=== PATIENT | female | born 1980 | race Caucasian/White ===

== ENCOUNTER 2016-11-07 09:19 | Outpatient (CLI) | payer OTHER ==
[2016-11-07 13:35] LABS: BASOPHILS # (AUTO) 0.1 10^3/uL (0.0-0.1); BASOPHILS % (AUTO) 0.8 %; EOSINOPHILS # (AUTO) 0.3 10^3/uL (0.0-0.7); EOSINOPHILS % (AUTO) 3.2 %; HCT - HEMATOCRIT 43.3 % (37.0-47.0); HGB - HEMOGLOBIN 14.4 g/dL (12.0-16.0); LYMPHOCYTES # (AUTO) 2.2 10^3/uL (1.5-3.5); LYMPHOCYTES % (AUTO) 25.8 %; MEAN CORPUSCULAR HEMOGLOBIN 29.9 pg (27.0-31.0); MEAN CORPUSCULAR HGB CONC 33.3 g/dL (32.0-36.0); MEAN CORPUSCULAR VOLUME 89.6 fL (81.0-99.0); MEAN PLATELET VOLUME 9.9 fL (7.9-10.8); MONOCYTES # (AUTO) 0.7 10^3/uL (0.0-1.0); MONOCYTES % (AUTO) 8.3 %; NEUTROPHILS # (AUTO) 5.3 10^3/uL (1.5-6.6); NEUTROPHILS % (AUTO) 61.9 %; RED BLOOD COUNT 4.84 10^6/uL (4.20-5.40); RED CELL DISTRIBUTION WIDTH 13.2 % (12.0-15.0); UNCORRECTED WHITE BLOOD COUNT 8.6 x10^3/uL; WHITE BLOOD COUNT 8.6 x10^3/uL (4.8-10.8)
[2016-11-07 13:36] LABS: ALBUMIN/GLOBULIN RATIO 1.2 (1.0-2.2); BILIRUBIN,TOTAL 0.5 mg/dL (0.2-1.0); BUN - BLOOD UREA NITROGEN 11 mg/dL (6-20); CALCIUM 8.6 mg/dL (8.5-10.3); CARBON DIOXIDE - CO2 23 mmol/L (21-32); CHLORIDE 107 mmol/L (101-111); CHOL/HDL RATIO 3.8 (<4.4); CHOLESTEROL 187 mg/dL; CREATININE 0.8 mg/dL (0.4-1.0); GFR - MDRD 82 (>89); GLUCOSE 91 mg/dL (70-100); HDL CHOLESTEROL 49 mg/dL; LDL/HDL RATIO 2.5 (<4.4); POTASSIUM 3.9 mmol/L (3.5-5.0); SODIUM 138 mmol/L (135-145); TOTAL PROTEIN 6.5 g/dL (6.7-8.2); TRIGLYCERIDES 76 mg/dL; VLDL CHOLESTEROL 15 mg/dL
[2016-11-07 13:44] LABS: HEMOGLOBIN A1C 0.53 g/dL
== END 2016-11-07 09:20 | disposition home or self-care (01) ==
LOC: LAB.WCP 09:19
PROVIDERS: ATTEND Family Medicine
DX: Z00.00 Encounter for general adult medical examination without abnormal findings (principal)
CPT/HCPCS: 36415; 80053; 80061; 83036; 84443; 85025

== ENCOUNTER 2016-12-16 08:39 | Outpatient (CLI) | payer OTHER ==
--- NOTE | 2016-12-16 23:48 | CT Report ---
EXAM: CT HEAD EXAM DATE: 12/16/2016 09:10 AM. CLINICAL HISTORY: SINUSITIS, ACUTE. COMPARISON: None. TECHNIQUE: Multiaxial CT images were obtained from the foramen magnum to the vertex. IV contrast: Non e. Reformats: Coronal. In accordance with CT protocol optimization, one or more of the following dose reduction techniques w ere utilized for this exam: automated exposure control, adjustment of mA and/or KV based on patient s ize, or use of iterative reconstructive technique. FINDINGS: Parenchyma: No intraparenchymal hemorrhage. No evidence of mass, midline shift, or CT findings of inf arction. Edwards-white differentiation is distinct. Extraaxial Spaces: Normal for age. No subdural or epidural collections identified. Ventricles: Normal in size and position. Sinuses: Imaged paranasal sinuses, orbits, and mastoids show no significant abnormality. Bones: No evidence of fracture or calvarial defect. Other: None. IMPRESSION: Normal head CT. [facility] Referring Provider Line: [phone] SITE ID: [id number]
== END 2016-12-16 08:40 | disposition home or self-care (01) ==
LOC: DI 08:39
PROVIDERS: ATTEND Family Medicine
DX: J01.90 Acute sinusitis, unspecified (principal)
CPT/HCPCS: 70450

== ENCOUNTER 2017-11-29 07:10 | Outpatient (CLI) | payer BC, OTHER ==
[2017-11-29 12:59] LABS: BASOPHILS # (AUTO) 0.1 10^3/uL (0.0-0.1); BASOPHILS % (AUTO) 0.8 %; EOSINOPHILS # (AUTO) 0.2 10^3/uL (0.0-0.7); EOSINOPHILS % (AUTO) 1.7 %; HGB - HEMOGLOBIN 14.2 g/dL (12.0-16.0); LYMPHOCYTES # (AUTO) 2.5 10^3/uL (1.5-3.5); LYMPHOCYTES % (AUTO) 25.5 %; MEAN CORPUSCULAR HEMOGLOBIN 30.2 pg (27.0-31.0); MEAN CORPUSCULAR HGB CONC 33.4 g/dL (32.0-36.0); MEAN CORPUSCULAR VOLUME 90.6 fL (81.0-99.0); MEAN PLATELET VOLUME 9.1 fL (7.9-10.8); MONOCYTES # (AUTO) 0.7 10^3/uL (0.0-1.0); MONOCYTES % (AUTO) 7.3 %; NEUTROPHILS # (AUTO) 6.3 10^3/uL (1.5-6.6); NEUTROPHILS % (AUTO) 64.7 %; PLT - PLATELET COUNT 202 10^3/uL (130-450); RED BLOOD COUNT 4.69 10^6/uL (4.20-5.40); RED CELL DISTRIBUTION WIDTH 13.3 % (12.0-15.0); WHITE BLOOD COUNT 9.7 x10^3/uL (4.8-10.8)
[2017-11-29 13:10] LABS: ALBUMIN 3.3 g/dL (3.2-5.5); ALBUMIN/GLOBULIN RATIO 0.9 (1.0-2.2); ALKALINE PHOSPHATASE 70 IU/L (42-121); ALT ALANINE AMINOTRANSFERASE 33 IU/L (10-60); AST ASPARTATE AMINOTRANSFERASE 27 IU/L (10-42); BILIRUBIN,TOTAL 0.5 mg/dL (0.2-1.0); BUN - BLOOD UREA NITROGEN 10 mg/dL (6-20); CALCIUM 8.5 mg/dL (8.5-10.3); CARBON DIOXIDE - CO2 25 mmol/L (21-32); CHLORIDE 104 mmol/L (101-111); CHOL/HDL RATIO 3.1 (<4.4); CHOLESTEROL 176 mg/dL; CREATININE 0.9 mg/dL (0.4-1.0); GFR - MDRD 71 (>89); GLUCOSE 83 mg/dL (70-100); HDL CHOLESTEROL 56 mg/dL; LDL CHOLESTEROL,CALCULATED 97 mg/dL; LDL/HDL RATIO 1.7 (<4.4); SODIUM 136 mmol/L (135-145); TOTAL PROTEIN 6.9 g/dL (6.7-8.2); VLDL CHOLESTEROL 23 mg/dL
[2017-11-29 13:23] LABS: HB2 TOTAL 15.5 g/dL; HEMOGLOBIN A1C 0.5 g/dL; HEMOGLOBIN A1C % 5.1 % (4.6-6.2)
== END 2017-11-29 07:11 ==
LOC: LAB.WCP 07:10
PROVIDERS: ATTEND Family Medicine
DX: Z00.00 Encounter for general adult medical examination without abnormal findings (principal); F41.8 Other specified anxiety disorders
CPT/HCPCS: 36415; 80053; 80061; 82306; 82607; 83036; 83721; 84443; 85025

== ENCOUNTER 2017-12-04 08:00 | Outpatient (CLI) | payer BC ==
[2017-12-04 19:39] LABS: THYROID STIMULATING HORMONE 4.45 uIU/mL (0.34-5.60)
[2017-12-04 19:41] LABS: FREE T4 (FREE THYROXINE) 0.72 ng/dL (0.58-1.64)
== END 2017-12-04 08:01 | disposition home or self-care (01) ==
LOC: LAB.WCP 08:00
PROVIDERS: ATTEND Physician Assistant
DX: R94.6 Abnormal results of thyroid function studies (principal)
CPT/HCPCS: 36415; 84439; 84443; 84481

== ENCOUNTER 2018-01-15 15:30 | Outpatient (CLI) | payer BC | END 2018-01-15 15:31 | disposition home or self-care (01) | LOC: SC 15:30 | PROVIDERS: ATTEND Internal Medicine Pulmonary Disease | DX: G47.30 Sleep apnea, unspecified (principal); G47.10 Hypersomnia, unspecified; R06.83 Snoring; E66.01 Morbid (severe) obesity due to excess calories; Z68.41 Body mass index [BMI] 40.0-44.9, adult | CPT/HCPCS: 99203; 99212 ==

== ENCOUNTER 2018-02-06 13:33 | Outpatient (CLI) | payer BC | END 2018-02-06 13:34 | disposition home or self-care (01) | LOC: SC 13:33 | PROVIDERS: ATTEND Nurse Practitioner Family | DX: G47.33 Obstructive sleep apnea (adult) (pediatric) (principal) | CPT/HCPCS: 99212; 99215 ==

== ENCOUNTER 2018-03-19 18:07 | Emergency (ER) | payer BC ==
[2018-03-19 18:13] VITALS: BP 147/102
[2018-03-19] MEDS ORDERED: HYDROcod/ACETAM 5/325 MG TABLET PO STA (18:23)
[2018-03-19] MEDS ORDERED: BACITRACIN OINT TOP ONE (18:23)
--- NOTE | 2018-03-19 18:24 | ED Physician Documentation ---
PD HPI LOWER EXT INJURY - Stated complaint Stated Complaint: LT FOOT PX/GLF/INJ - Chief complaint Chief Complaint: Ext Problem - History obtained from History obtained from: Patient, Family (mom) - History of Present Illness Type of injury: Fall (She stuck her foot in a pothole and tripped while running today and has pain of the lateral left foot and also a scrape on the right knee but is able to bear weight on the right lower extremity but not the left. She is up-to-date on tetanus. No other injuries.) Review of Systems Constitutional: reports: Reviewed and negative Cardiac: reports: Reviewed and negative Respiratory: reports: Reviewed and negative PD PAST MEDICAL HISTORY - Present Medications Home Medications: Ambulatory Orders Medication Instructions Recorded Confirmed Hydrocodone/Acetaminophen 1 - 2 each PO Q6H PRN #14 tablet 03/19/18 [Hydrocodon-Acetaminophen 5-325] Levonorgestrel-Ethin Estradiol 1 each PO DAILY 03/19/18 03/19/18 [Marlissa-28 Tablet] - Allergies Allergies/Adverse Reactions: Allergies Allergy/AdvReac Type Severity Reaction Status Date / Time No Known Drug Allergies Allergy Verified 03/19/18 18:13 PD ED PE NORMAL - Vitals Vital signs reviewed: Yes - General General: Alert and oriented X 3, No acute distress - Neck Neck: Supple, no meningeal sign, No bony TTP - Extremities Extremities: Other (There is a large shallow abrasion over the anterior right knee with range of motion. She is quite tender over the proximal fifth metatarsal of the left foot without corresponding ankle or proximal fibular tenderness. NVI in the foot.) - Neuro Neuro: Alert and oriented X 3, Normal speech Results - Vitals Vitals: Vital Signs - 24 hr 03/19/18 03/19/18 18:09 19:21 Temperature 36.8 C Heart Rate 114 H 95 Respiratory 16 15 Rate Blood Pressure 147/102 H O2 Saturation 100 99 Oxygen O2 Source Room air - Rads (name of study) L foot XR Radiology: EMP read contemporaneously (Mildly displaced intra-articular fracture of the base of the fifth metatarsal.) Procedures - Splint (location) LLE Splint applied by: Tech Type of splint: Fiberglass, Short leg, Posterior Other: Patient tolerated well, No complications, Neurovascular intact. No: Crutches provided (has them and she has a scooter) Departure - Departure Disposition: 01 Home, Self Care Clinical Impression: Nondisplaced fracture of fifth left metatarsal bone Condition: Good Record reviewed to determine appropriate education?: Yes Instructions: ED Fx Foot Follow-Up: [facility] [Provider Group] - Within 1 week Prescriptions: Hydrocodone/Acetaminophen [Hydrocodon-Acetaminophen 5-325] 1 - 2 each PO Q6H PRN #14 tablet PRN Reason: pain Comments: Keep the splint on and dry, do not remove it. Follow-up with the orthopedics office within the week, call tomorrow for an appointment. Keep it elevated as much as possible. Do not drink or drive while taking prescription pain medications. You can take ibuprofen in addition to the prescription pain medication. Do not walk or bear weight on your left leg. Your blood pressure was elevated today on check into the emergency department. This does not mean that you have hypertension, it is a common phenomenon to come to the emergency department and have elevated blood pressure. I recommend that you see your primary care physician within the week to have it rechecked when you are feeling better. Forms: Activity restrictions Discharge Date/Time: 03/19/18 19:22
--- NOTE | 2018-03-19 19:05 | XRAY Report ---
Reason: foot inj Procedure Date: 03/19/2018 Accession Number: [id number] / [id number] Procedure: XR - Foot 3 View LT CPT Code: FULL RESULT: EXAM: LEFT FOOT RADIOGRAPHY EXAM DATE: 03/19/2018 06:49 PM. CLINICAL HISTORY: Foot injury. COMPARISON: None. TECHNIQUE: 3 views. FINDINGS: Bones: Mildly displaced, intra-articular base of fifth metatarsal fracture. Joints: Normal. No subluxations. Soft Tissues: Normal. No soft tissue swelling. IMPRESSION: Mildly displaced, intra-articular base of fifth metatarsal fracture. [facility]
== END 2018-03-19 19:22 | disposition home or self-care (01) ==
LOC: ED 18:07
DX: S92.355A Nondisplaced fracture of fifth metatarsal bone, left foot, initial encounter for closed fracture (principal); W01.0XXA Fall on same level from slipping, tripping and stumbling without subsequent striking against object, initial encounter; Y93.02 Activity, running; W23.0XXA Caught, crushed, jammed, or pinched between moving objects, initial encounter; R03.0 Elevated blood-pressure reading, without diagnosis of hypertension
CPT/HCPCS: 29515; 73630; 99283; A9270

== ENCOUNTER 2018-03-20 15:33 | Outpatient (CLI) | payer BC | END 2018-03-20 15:34 | disposition home or self-care (01) | LOC: SC 15:33 | PROVIDERS: ATTEND Nurse Practitioner Family | DX: G47.33 Obstructive sleep apnea (adult) (pediatric) (principal) | CPT/HCPCS: 99212; 99215 ==

== ENCOUNTER 2018-03-30 19:24 | Emergency (ER) | payer BC ==
[2018-03-30 19:52] LABS: BASOPHILS # (AUTO) 0.1 10^3/uL (0.0-0.1); EOSINOPHILS # (AUTO) 0.2 10^3/uL (0.0-0.7); EOSINOPHILS % (AUTO) 3.1 %; HGB - HEMOGLOBIN 14.3 g/dL (12.0-16.0); LYMPHOCYTES # (AUTO) 2.8 10^3/uL (1.5-3.5); MEAN CORPUSCULAR HEMOGLOBIN 29.6 pg (27.0-31.0); MEAN CORPUSCULAR HGB CONC 33.3 g/dL (32.0-36.0); MEAN CORPUSCULAR VOLUME 88.9 fL (81.0-99.0); MEAN PLATELET VOLUME 8.3 fL (7.9-10.8); MONOCYTES # (AUTO) 0.7 10^3/uL (0.0-1.0); MONOCYTES % (AUTO) 10.5 %; NEUTROPHILS # (AUTO) 2.9 10^3/uL (1.5-6.6); NEUTROPHILS % (AUTO) 43.4 %; PLT - PLATELET COUNT 232 10^3/uL (130-450); RED BLOOD COUNT 4.82 10^6/uL (4.20-5.40); WHITE BLOOD COUNT 6.8 x10^3/uL (4.8-10.8)
--- NOTE | 2018-03-30 19:56 | ED Physician Documentation ---
PD HPI CHEST PAIN - Stated complaint Stated Complaint: ANXIETY/CP - Chief complaint Chief Complaint: Cardiac - History obtained from History obtained from: Patient - History of Present Illness Timing - onset: How many minutes ago (20), Today Timing - onset during: Light activity Timing - details: Abrupt onset, Still present, Waxing and waning Location: Left chest (she says she started with some left chest pain this evening after eating. She got anxious about it, but was not anxious at the onset of the pain.) Radiation: Back. No: Jaw, Neck Worsened by: Inspiration, Movement, Palpation. No: Exertion Associated symptoms: No: Shortness of air, Nausea, Feeling faint / dizzy, General Weakness Similar symptoms before: No diagnosis (episodic chest pains when feeling anxious, with Dx of panic attacks in the past. This feels different pattern.) Recently seen: Not recently seen Review of Systems Constitutional: denies: Fever, Chills Nose: denies: Rhinorrhea / runny nose, Congestion Throat: denies: Sore throat Cardiac: denies: Palpitations Respiratory: reports: Cough. denies: Dyspnea, Wheezing GI: denies: Abdominal Pain, Nausea Skin: denies: Rash, Lesions Musculoskeletal: denies: Neck pain, Back pain PD PAST MEDICAL HISTORY - Past Medical History Past Medical History: Yes Respiratory: Sleep apnea, CPAP use Psych: Depression, Anxiety - Past Surgical History Past Surgical History: Yes - Present Medications Home Medications: Ambulatory Orders Medication Instructions Recorded Confirmed Levonorgestrel-Ethin Estradiol 1 each PO DAILY 03/19/18 03/19/18 [Marlissa-28 Tablet] HYDROcod/ACETAM 5/325 [[place] 5/325] 1 tab PO Q6H PRN #15 tablet 03/30/18 Naproxen [Naprosyn] 500 mg PO BID #20 tablet 03/30/18 - Allergies Allergies/Adverse Reactions: Allergies Allergy/AdvReac Type Severity Reaction Status Date / Time citalopram [From Celexa] AdvReac Hallucinati Verified 03/30/18 19:38 ons - Social History Does the pt smoke?: No Smoking Status: Never smoker Does the pt drink ETOH?: Yes Does the pt have substance abuse?: No - Immunizations Immunizations are current?: Yes Immunizations: TDAP current <10years - POLST Patient has POLST: No PD ED PE NORMAL - Vitals Vital signs reviewed: Yes - General General: Alert and oriented X 3, No acute distress, Well developed/nourished - HEENT HEENT: Ears normal, Moist mucous membranes, Pharynx benign - Neck Neck: Supple, no meningeal sign, No adenopathy - Cardiac Cardiac: RRR, No murmur - Respiratory Respiratory: Clear bilaterally, Other (left parasternal tissue with tenderness but no redness nor rash. ) - Abdomen Abdomen: Soft, Non tender - Derm Derm: Normal color, Warm and dry - Extremities Extremities: Normal ROM s pain, No edema, No calf tenderness / cord, Other (walking ortho boot on left ankle/foot) - Neuro Neuro: Alert and oriented X 3, No motor deficit, Normal speech Results - Vitals Vitals: Oxygen O2 Source Room air - EKG (time done) 19:36 Rate: Rate (enter#) (80) Rhythm: NSR [place]: Normal Intervals: Normal FL QRS: Normal Ischemia: Normal ST segments. No: ST elevation c/w ischemia, ST depression - Labs Labs: Laboratory Tests 03/30/18 03/30/18 03/30/18 19:43 19:43 19:43 WBC 6.8 RBC 4.82 Hgb 14.3 Hct 42.8 MCV 88.9 MCH 29.6 MCHC 33.3 RDW 13.0 Plt Count 232 MPV 8.3 Neut # (Auto) 2.9 Lymph # (Auto) 2.8 Fountain # (Auto) 0.7 Eos # (Auto) 0.2 Baso # (Auto) 0.1 Absolute Nucleated RBC 0.01 Nucleated RBC % 0.2 Sodium 138 Potassium 4.0 Chloride 105 Carbon Dioxide 25 Anion Gap 8.0 BUN 9 Creatinine 0.9 Estimated GFR (MDRD) 71 L Glucose 108 H Calcium 8.8 Total Bilirubin 0.4 AST 19 ALT 19 Alkaline Phosphatase 64 Troponin I < 0.04 Total Protein 7.3 Albumin 3.4 Globulin 3.9 Albumin/Globulin Ratio 0.9 L Lipase 46 PD MEDICAL DECISION MAKING - ED course Complexity details: reviewed results, considered differential (she may have had anxiety episodes in the past, and some component of this can be that, but she seems to have musculoskeletal pain and tenderness now. ), d/w patient Departure - Departure Disposition: 01 Home, Self Care Clinical Impression: Left-sided chest wall pain Condition: Stable Record reviewed to determine appropriate education?: Yes Instructions: ED Chest Pain Costochondritis Follow-Up: Nathalie Hagan MD [Primary Care Provider] - Prescriptions: HYDROcod/ACETAM 5/325 [[place] 5/325] 1 tab PO Q6H PRN #15 tablet PRN Reason: Pain Naproxen [Naprosyn] 500 mg PO BID #20 tablet Comments: Your current pain seems to be musculoskeletal with some tenderness in the chest and pain with breathing. There are no signs of heart or lung causes based on the EKG chest x-ray and blood tests. I would have you treated with some n aproxen anti-inflammatory twice daily and add to that hydrocodone if needed for pain. Drink lots of fluids. Follow-up with your primary care if not improved over the next several days to week. Discharge Date/Time: 03/30/18 21:54
[2018-03-30 20:06] LABS: ALBUMIN 3.4 g/dL (3.2-5.5); ALBUMIN/GLOBULIN RATIO 0.9 (1.0-2.2); BILIRUBIN,TOTAL 0.4 mg/dL (0.2-1.0); CALCIUM 8.8 mg/dL (8.5-10.3); CREATININE 0.9 mg/dL (0.4-1.0); TOTAL PROTEIN 7.3 g/dL (6.7-8.2)
[2018-03-30] MEDS ORDERED: MORPHINE 10 MG/ML VIAL IVP STA ×2 (20:26→21:36)
[2018-03-30] MEDS ORDERED: KETOROLAC 60 MG/2 ML VIAL IVP STA (20:26)
--- NOTE | 2018-03-30 21:29 | XRAY Report ---
Reason: chest pain left sided Procedure Date: 03/30/2018 Accession Number: [id number] / [id number] Procedure: XR - Chest 2 View X-Ray CPT Code: 87534 FULL RESULT: EXAM: CHEST RADIOGRAPHY EXAM DATE: 03/30/2018 09:04 PM. CLINICAL HISTORY: Chest pain left sided. COMPARISON: None. TECHNIQUE: 2 views. FINDINGS: Lungs/Pleura: Mildly low lung volumes. No focal lung consolidation. No pleural effusion. No pneumothorax. Mediastinum: Cardiac silhouette size appears unremarkable. Other: None. IMPRESSION: Mildly low lung volumes with mild crowding. No focal lung consolidation or pleural effusions. [facility]
[2018-03-30 21:36] VITALS: BP 129/91
[2018-03-30] MEDS ORDERED: HYDROcod/ACETAM 5/325 MG TABLET PO STA (21:36)
== END 2018-03-30 21:54 | disposition home or self-care (01) ==
LOC: ED 19:24
DX: R07.89 Other chest pain (principal); F41.9 Anxiety disorder, unspecified
CPT/HCPCS: 36415; 71046; 80053; 83690; 84484; 85025; 93005; 96374; 96375; 99284; A9270

== ENCOUNTER 2018-04-25 12:34 | Outpatient (CLI) | payer BC ==
[2018-04-25] MEDS ORDERED: REGADENOSON 0.4 MG/5 ML SYRINGE IVP ONE (12:49)
--- NOTE | 2018-04-25 18:01 | CARDIAC PROCEDURE NOTE ---
DATE OF SERVICE: 04/25/2018 Physician: Leia Drew MD, [facility] INDICATION: Chest pain. CARDIAC RISK FACTORS: Obesity. PROCEDURE: After signing informed consent, the patient underwent a Lexiscan pharmaceutical stress test with nuclear myocardial perfusion imaging. Resting heart rate 75, peak heart rate 121. Resting blood pressure 136/82, peak blood pressure 140/82. Lexiscan was infused per protocol. The patient developed "chest tightness" which she rated a 3/10. The symptoms subsided in 2 minutes. There were no other symptoms. RESTING EKG: Normal sinus rhythm, T-wave slightly inverted in leads III and flat in aVF. EKG AT [facility]: No new ST or T-wave changes. SUMMARY: 1. No ischemic EKG changes on this pharmaceutical stress test. 2. Nuclear images reported separately. cc: Nathalie Hagan MD TD: 04/25/2018 17:29 MTDD
--- NOTE | 2018-04-26 12:44 | Nuclear Medicine Report ---
Reason: CHEST PAIN Procedure Date: 04/26/2018 Accession Number: [id number] / [id number] Procedure: NM - Myocardial Perfusion STR/RST CPT Code: FULL RESULT: EXAM: SINGLE-ISOTOPE PHARMACOLOGICAL STRESS TEST WITH REGADENOSON. SINGLE-ISOTOPE AND TWO-DAY REST/STRESS MYOCARDIAL PERFUSION SCANS WITH TOMOGRAPHIC IMAGING, QUANTITATIVE ANALYSIS, WALL MOTION ANALYSIS AND CALCULATION OF EJECTION FRACTION. EXAM DATE: 04/26/2018 11:50 AM. CLINICAL HISTORY: CHEST PAIN. COMPARISON: None available. TECHNIQUE: A pharmacological stress was performed with the infusion of 0.4 mg regadenoson per protocol. According to protocol, 27.6 mCi of Tc-99m sestamibi was injected for stress myocardial perfusion scan. Motion correction was applied when appropriate. The following day after the intravenous administration of 25.7 mCi of Tc-99m sestamibi, a rest myocardial perfusion scan was done with tomography. Motion correction was applied when appropriate. Gated tomographic images were obtained for wall motion analysis and computation of left ventricular ejection fraction. FINDINGS: Images show a moderate severity fixed defect involving the anterior apex and mid to distal anterior wall. No convincing reversible perfusion defects. Computer analysis: Summed stress score 9 Summed rest score 9 Summed difference score 0 Wall motion analysis demonstrates no focal wall motion abnormality. The left ventricular end-diastolic volume is 95 cc. The left ventricular end-systolic volume is 64 cc. The left ventricular ejection fraction is calculated to be 67%. IMPRESSION: 1. Moderate severity fixed defect in the anterior wall and anterior apex. No convincing reversible perfusion defects. 2. Left ventricular ejection fraction of 67%. 3. Normal segmental and global wall motion. 4. Normal left ventricular cavity size, no change with stress. 5. Based on computer analysis, moderately abnormal study with no ischemia. [facility]
== END 2018-04-25 12:35 | disposition home or self-care (01) ==
LOC: DI 12:34
PROVIDERS: ATTEND Family Medicine
DX: R07.9 Chest pain, unspecified (principal); R93.1 Abnormal findings on diagnostic imaging of heart and coronary circulation
CPT/HCPCS: 78452; 93017; A9500; J2785

== ENCOUNTER 2018-06-11 08:48 | Day surgery (SDC) | payer BC ==
[2018-06-11] MEDS ORDERED: LACTATED RINGERS 1,000 ML IV ONE (09:05)
[2018-06-11] MEDS ORDERED: ceFAZolin 2 GM/50 ML 2 GM/50 ML BAG IV ONE ×2 (09:06→11:23)
[2018-06-11] MEDS ORDERED: BUPIVACAINE 0.5% PF 30 ML VIAL ONE (09:13)
--- NOTE | 2018-06-11 09:27 | ANESTHESIA ---
Pre-Anesthesia VS, & Labs - Diagnosis Left 5th metatarsal fracture - Procedure ORIF 5th metatarsal Vital Signs: Temp Pulse Resp BP Pulse Ox 36.5 C 70 16 154/105 H 99 06/11/18 09:16 06/11/18 09:16 06/11/18 09:16 06/11/18 09:16 06/11/18 09:16 Height 5 ft 9 in Weight (kg) 129.7 kg Body Mass Index 42.2 - NPO >8 hours - Is Patient ?: No - Lab Results Lab results reviewed: Yes Home Medications and Allergies Levonorgestrel-Ethin Estradiol [Marlissa-28 Tablet] 1 each PO DAILY 03/19/18 Allergies/Adverse Reactions: Allergies Allergy/AdvReac Type Severity Reaction Status Date / Time citalopram [From Celexa] AdvReac Hallucinati Verified 03/30/18 19:38 ons Anes History & Medical History - Anesthetic History Anesthesia Complications: reports: No previous complications Family history of Anesthesia Complications: Denies Family history of Malignant Hyperthermia: Denies - Medical History Cardiovascular: reports: Arrhythmia Pulmonary: reports: Sleep apnea, CPAP use Gastrointestinal: reports: None Urinary: reports: None Neuro: reports: None, Other (Panic attacks) Musculoskeletal: reports: Osteoarthritis, Chronic back pain Endocrine/Autoimmune: reports: None Blood Disorders: reports: None Skin: reports: Psoriasis Smoking Status: Never smoker Psychosocial: reports: Depression - Surgical History Eyes Ears Nose Throat (EENT): Other (wisdom teeth) Results - EKG Results EKG Comparison: Reviewed EKG Exam General: Alert Dental: WNL Mouth Opening: Greater than 4 Fingerbreadths Neck Mobility: Normal Mallampati classification: II Thyromental Distance: greater than 6 cm Respiratory: Lungs clear Cardiovascular: Regular rate Neurological: Normal speech Mental/Cognitive Status: Alert/Oriented X3 Cognitive Status: Within normal limits Plan Anesthesia Type: MAC Consent for Procedure(s) Verified and Reviewed: Yes Code Status: Attempt Resuscitation ASA classification: 2-Mild systemic disease Is this case an emergency?: No
[2018-06-11 09:30] LABS: HCG UR QUAL NEGATIVE
[2018-06-11] MEDS ORDERED: BUPIVACAINE 0.5% PF 30 ML VIAL INFIL ONE ×2 (11:14)
[2018-06-11] MEDS ORDERED: ONDANSETRON 4 MG/2 ML VIAL IVP ONE (11:23)
[2018-06-11] MEDS ORDERED: KETOROLAC 30 MG/ML VIAL IVP ONE (11:23)
[2018-06-11] MEDS ORDERED: fentaNYL 250 MCG/5 ML VIAL IVP ONE (11:23)
[2018-06-11] MEDS ORDERED: PROPOFOL 200 MG/20 ML VIAL IVP ONE (11:23)
[2018-06-11] MEDS ORDERED: HYDROcod/ACETAM 5/325 MG TABLET PO PRN (11:54)
[2018-06-11] MEDS ORDERED: HYDROmorphone 0.5 MG/0.5 ML SYRINGE IVP PRN (11:54)
[2018-06-11] MEDS ORDERED: HYDROmorphone 1 MG/ML CARPUJECT ONE (12:15)
[2018-06-11] MEDS ORDERED: HYDROcod/ACETAM 5/325 MG TABLET ONE (12:30)
[2018-06-11 13:15] VITALS: BP 133/70
--- NOTE | 2018-06-11 15:25 | OPERATIVE REPORT ---
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 POSTOPERATIVE DIAGNOSIS: Left fifth metatarsal base fracture with fibrous union and pain. PROCEDURE: Arthrotomy of the base of the fifth metatarsocuboid joint with resection of the fracture fragment, and re-repair of tendinous tissue to the capsule and closure. SURGEON: El Moise MD BODY TECHNICIAN: ANESTHESIA TYPE/PROVIDER: General, Dr. Jensen. INDICATIONS FOR SURGERY: Patient is a 37-year-old female who had a sprain of her left midfoot a few months ago with subsequent fracture, intra-articular, at the base of her fifth metatarsal. In spite of immobilization treatment, the patient continues to have pain in that area and had an x-ray abnorma lity of a fibrous union of a fragment of bone into the joint space. This was monitored over time and , because the patient did not respond, it was recommended the patient undergo a surgical open reducti on and internal fixation versus excision. FINDINGS AT SURGERY: Patient's foot exam was unremarkable. At arthrotomy and excision of the base o f the bone, the patient was noted to have bony abnormality at the base without any obvious fibrous un ion, but rather a chondral junction with minimal visible gross motion evident, with reflection of the tendinous insertions. This fragment was small and fragile, and was removed in lieu of any repair, a s it did not substantially involve any articular surface. DESCRIPTION OF OPERATIVE PROCEDURE: Patient was taken to the operating room, given a general anesthe tic in a supine position. A tourniquet was placed on her thigh. Her foot and leg were sterilely pre pped and draped in a standard fashion. After surgical timeout, the tourniquet was inflated. The pat ient's foot was approached through a lateral incision directly over the fifth metatarsal base. Caref ul dissection was made, spreading down to the base of the bone and a reflection was made of soft tiss ues off the base of the bone so that the intra-articular extent of the joint could be visualized and the fragment identified, utilizing a mini C-arm for this purpose. This area was not grossly unstable , but it had been painful and it did represent a type of enchondrosis joint and, because of this and the fragment being small and fragile and soft, it was elected to excise the fragment, and this was pr oceeded and undertaken with a rongeur and imaging. Finally, the Mitek anchor was placed in the resid ual base of bone and the tissues were repaired over the base of the bone utilizing the Mitek sutures, as well as 2 sutures of #2 FiberWire there were with a buried knot into the deep tissue. This stabi lized the joint and returned the tendinous tissue over the base of the bone, and allowed closure then of skin with Vicryl and interrupted Prolene. Sterile dressings were applied. The patient was fitte d into a padded, below-knee, fiberglass splint after which she was taken to the recovery room in stab le condition. ESTIMATED BLOOD LOSS: Minimal. COMPLICATIONS: None. COUNTS: Sponge and needle counts correct. TD: 06/11/2018 14:09
== END 2018-06-11 08:49 | disposition home or self-care (01) ==
LOC: SDS 08:48
PROVIDERS: ATTEND Orthopaedic Surgery
PROC: 0SC Lower Joints, Extirpation (ICD-10-PCS; principal; 2018-06-11 10:40)
DX: S92.352K Displaced fracture of fifth metatarsal bone, left foot, subsequent encounter for fracture with nonunion (principal)
CPT/HCPCS: 28020; 81025; A9270; J0690; J1170; J3010; J7120

== ENCOUNTER 2018-06-24 15:40 | Outpatient (CLI) | payer BC | END 2018-06-24 15:41 | disposition home or self-care (01) | LOC: SC 15:40 | PROVIDERS: ATTEND Nurse Practitioner Family | DX: G47.33 Obstructive sleep apnea (adult) (pediatric) (principal) | CPT/HCPCS: 99212; 99214 ==

== ENCOUNTER 2018-08-26 08:17 | Outpatient (CLI) | payer BC | END 2018-08-26 08:18 | disposition home or self-care (01) | LOC: SC 08:17 | PROVIDERS: ATTEND Nurse Practitioner Family | DX: G47.33 Obstructive sleep apnea (adult) (pediatric) (principal) | CPT/HCPCS: 99212; 99214 ==

== ENCOUNTER 2018-10-08 16:14 | Outpatient (CLI) | payer BC | END 2018-10-08 16:15 | disposition home or self-care (01) | LOC: SC 16:14 | PROVIDERS: ATTEND Nurse Practitioner Family | DX: G47.33 Obstructive sleep apnea (adult) (pediatric) (principal) | CPT/HCPCS: 99212; 99214 ==

== ENCOUNTER 2018-12-24 07:04 | Outpatient (CLI) | payer BC ==
[2018-12-24 12:38] LABS: BASOPHILS # (AUTO) 0.1 10^3/uL (0.0-0.1); BASOPHILS % (AUTO) 0.9 %; EOSINOPHILS # (AUTO) 0.3 10^3/uL (0.0-0.7); EOSINOPHILS % (AUTO) 2.9 %; HGB - HEMOGLOBIN 14.5 g/dL (12.0-16.0); LYMPHOCYTES # (AUTO) 2.6 10^3/uL (1.5-3.5); LYMPHOCYTES % (AUTO) 28.5 %; MEAN CORPUSCULAR HEMOGLOBIN 30.2 pg (27.0-31.0); MEAN CORPUSCULAR HGB CONC 32.2 g/dL (32.0-36.0); MEAN CORPUSCULAR VOLUME 93.8 fL (81.0-99.0); MEAN PLATELET VOLUME 11.1 fL (7.9-10.8); MONOCYTES # (AUTO) 0.8 10^3/uL (0.0-1.0); MONOCYTES % (AUTO) 8.8 %; NEUTROPHILS # (AUTO) 5.2 10^3/uL (1.5-6.6); NEUTROPHILS % (AUTO) 58.3 %; PLT - PLATELET COUNT 257 10^3/uL (130-450); RED CELL DISTRIBUTION WIDTH 13.6 % (12.0-15.0)
[2018-12-24 13:23] LABS: ALBUMIN 3.7 g/dL (3.2-5.5); ALBUMIN/GLOBULIN RATIO 1.2 (1.0-2.2); ALKALINE PHOSPHATASE 49 IU/L (42-121); ALT ALANINE AMINOTRANSFERASE 27 IU/L (10-60); AST ASPARTATE AMINOTRANSFERASE 23 IU/L (10-42); BILIRUBIN,TOTAL 0.8 mg/dL (0.2-1.0); BUN - BLOOD UREA NITROGEN 14 mg/dL (6-20); CALCIUM 8.9 mg/dL (8.5-10.3); CARBON DIOXIDE - CO2 22 mmol/L (21-32); CHLORIDE 104 mmol/L (101-111); CHOL/HDL RATIO 3.8 (<4.4); CHOLESTEROL 213 mg/dL; CREATININE 0.8 mg/dL (0.4-1.0); GFR - MDRD 81 (>89); GLUCOSE 84 mg/dL (70-100); HDL CHOLESTEROL 56 mg/dL; LDL CHOLESTEROL,CALCULATED 135 mg/dL; LDL/HDL RATIO 2.4 (<4.4); SODIUM 138 mmol/L (135-145); TOTAL PROTEIN 6.8 g/dL (6.7-8.2); VLDL CHOLESTEROL 22 mg/dL
== END 2018-12-24 23:59 | disposition home or self-care (01) ==
LOC: LAB.WCP 07:04
PROVIDERS: ATTEND Physician Assistant Medical
DX: Z00.00 Encounter for general adult medical examination without abnormal findings (principal)
CPT/HCPCS: 36415; 80053; 80061; 83721; 84443; 85025

== ENCOUNTER 2019-01-08 09:03 | Outpatient (CLI) | payer BC ==
[2019-01-08 10:26] VITALS: BP 124/80
--- NOTE | 2019-01-08 10:26 | SLEEP CARE CONSULTATION ---
Information from patient questionnaire entered by Nancy De La Cruz. I have reviewed and concur with the information entered by Nancy De La Cruz. This document represents the service I personally performed and the decisions made by me, Paz Hampton, RN, MSN, DATA INTEGRITY CONSULTANT. History of Present Illness Previous diagnosis: Mild, Obstructive Sleep Apnea-Hypopnea Syndrome AHI: 7.1 Reason for CPAP/BiPAP follow up: three month Equipment type: CPAP Equipment obtained from: [facility] (having difficulty getting supplies even when ordered - so ordered filters online) Mask style: Full face Mask brand: Resmed Backup mask available: Yes Last cushion change: a month CPAP Compliance Data - Data Reviewed with Patient Average duration of nightly device use: 6.25 Compliance rate %: 97.8 (90 days) Current pressure setting (cmH2O): 7-11 Humidity settin Heated hose settin Average residual AHI: 0.7 Average large leak: 6 mins 5 sec Subjective Missed days of use due to: reports: other (no data one day, unknown cause as patient uses nightly) Patient concerns: reports: air blowing in eyes (when time to change mask but not nightly - CPAP pillow has really helped reduce mask leaks. ), mask leak noise (only with old mask cushion ), nasal congestion (chronic, not interferring with CPAP as showering at night and using saline nasal spray prior to CPAP which has reduced sympotms ), dry mouth, nose, throat (occasionally when notes sleeping on her back.). denies: aerophagia, mask discomfort, condensation in mask/hose, epistaxis Observed to snore while using device: No (single) On therapy, patient: reports: sleeping better, awakening more refreshed, being more awake and alert during the day, more rested overall. denies: drowsiness while driving Initial Declo Sleepiness Scale score: 18 Current Declo Sleepiness Scale score: 4 Allergies and Home Medications Known drug allergies: Yes (celexa) Home medication list reviewed: Yes Allergy and home medication list: Medication List Medication Name (generic/name brand) Strength & Dosage Levora 0.15/30 mg-mcg Tab one daily B Complex Tab one daily Multivitamins Cap four daily Ashwaganda 1 cap daily Merlin-E 600mg daily Tylenol 2-4 tablets as needed q8hr Aleve 1 daily Allergy List Celexa Physical Exam Blood Pressure: 124/80 Cuff size: long Heart Rate: 90 O2 Saturation: 96 Height: 5 ft 9 in Weight (kg): 134.354 kg Body Mass Index: 43.7 BMI Classification: Class 3 Impression and Plan 1. Obstructive Sleep Apnea-Hypopnea Syndrome, mild, with good treatment compliance and good apnea control. On CPAP therapy, the patient has better sleep quality and is more rested overall. She has also noted reduced anxiety with CPAP use and is pleased with benefit of treatment . For oral dryness, it appears her heated hose was raised and humidity reduced. Thus she is advised to raise humidity and turn down to heated hose to comfort. The heated hose only needs to be used or raised if condensation. If oral dryness persists, I mentioned the use of a chinstrap if she prefers to sleep supine with rationale explained but she declined as is only noted mildly when has slept supine and preferred sleeping position is lateral recumbent. Since she has been having difficulty getting supplies and has had her CPAP almost a year, I explained she could transfer to another company and all others send to the home after ordering. Since her insurance is changing at work next month, she will contact me so can make a transfer at that time. Some insurances only use specific DMEs. I will have my institutional research coordinator review her options. A DWO prescription will be made and faxed to DME of her choice. If continued problems with supplies after transfer, she is to notify us to see if we can transfer again. She is hoping to lose weight with some activity changes at work and release from PT soon. I discussed the benefit of weight loss and explained how significant weight loss can reduce pressure requirements. Her autoCPAP will accomodate for some. Symptoms to report to discussed. Patient's apnea severity and rationale for treatment to reduce apnea, improve sleep quality and reduce cardiovascular and cerebrovascular events was reviewed. I also reviewed the benefit of consistent device use of CPAP for anxiety. * Continue CPAP pressure at cmH2O * Adjust humidity and heated hose * Transfer to new DME once insurance change is known in January * Notify me if snoring with mask or feeling that the pressure is too much or too little * Attempt to lose weight * Return for follow up in 6 months, or sooner if concerns arise I spent 100% of this 32 minute visit face to face with the patient with greater than 50% of this was spent time counseling the patient and coordination of care.
== END 2019-01-08 09:04 | disposition home or self-care (01) ==
LOC: SC 09:03
PROVIDERS: ATTEND Nurse Practitioner Family
DX: G47.33 Obstructive sleep apnea (adult) (pediatric) (principal)
CPT/HCPCS: 99212; 99214

== ENCOUNTER 2019-07-22 16:20 | Outpatient (CLI) | payer BC, OTHER ==
[2019-07-22 17:19] VITALS: BP 120/70
--- NOTE | 2019-07-22 17:19 | SLEEP CARE CONSULTATION ---
Information from patient questionnaire entered by Nancy De La Cruz. I have reviewed and concur with the information entered by Nancy De La Cruz. This document represents the service I personally performed and the decisions made by me, Paz Hampton, RN, MSN, CUTTING TABLE OPERATOR. History of Present Illness Previous diagnosis: Mild, Obstructive Sleep Apnea-Hypopnea Syndrome AHI: 7.1 Reason for follow up: three month Equipment type: CPAP Equipment obtained from: [employer] (had difficulty getting supplies and bought online before new Insurance this year.) Mask style: Full face Mask brand: Resmed Backup mask available: Yes Last cushion change: 1 month ago CPAP Compliance Data - Data Reviewed with Patient Average duration of nightly device use: 6.25 Compliance rate %: 92.2 (90 days) Current pressure setting (cmH2O): 7-11 Humidity settin Heated hose settin Average residual AHI: 0.8 Average large leak: 15 min 36 sec Subjective Missed days of use due to: reports: illness Patient concerns: reports: nasal congestion (some residual from cold ). denies: aerophagia, mask discomfort, air blowing in eyes, mask leak noise, condensation in mask/hose, dry mouth, nose, throat, epistaxis Observed to snore while using device: No Current pressure setting perceived as: comfortable On therapy, patient: reports: sleeping better, awakening more refreshed, being more awake and alert during the day, more rested overall. denies: drowsiness while driving Initial [place] Sleepiness Scale score: 18 Current [place] Sleepiness Scale score: 7 Allergies and Home Medications Known drug allergies: Yes (citalopram ) Home medication list reviewed: Yes (no changes from last visit ) Review of Systems Review of systems same as previous: No Physical Exam Blood Pressure: 120/70 Cuff size: long Heart Rate: 82 O2 Saturation: 98 Height: 5 ft 9 in Weight: 286 lb Weight change since last visit: lost 11 pounds Body Mass Index: 42.2 BMI Classification: Morbidly Obese Impression and Plan 1. Obstructive Sleep Apnea-Hypopnea Syndrome, mild, with good treatment compliance and good apnea control. On CPAP therapy, the patient has better sleep quality and is more rested overall. For patient supply concerns. Patient was notified that another DME can be used. Since she now has [employer], I will have my sales and marketing coordinator inform of DME options which is probably [employer]. A [facility] prescription will then be made. Patient advised to contact this office if further supply problems. Patient continues to lose weight about 1 - 1.5 pounds a week with ultimate goal of losing 100 pounds which will take her BMI from morbid obesity to overweight. She has joined a CBT weight loss program [facility] as well as joined the gym. If she has problems in future with weight loss goals , she is to discuss a diet consultation with her PCP. Significant weight loss will not only reduce apnea but CPAP pressure requirements. Symptoms to report to change pressure discussed. Patient's apnea severity and rationale for treatment to reduce apnea, improve sleep quality and reduce cardiovascular and cerebrovascular events was reviewed. I also reviewed the benefit of consistent device use of CPAP for depression/anxiety. * Continue CPAP pressure at [id number] * Transfer to new [facility] [place] * Notify me if snoring with mask or feeling that the pressure is too much or too little * Continue to lose weight * Call this office if any problems using CPAP * Return for follow up in 1 year , or sooner if concerns arise Time Spent with Patient (minutes): 32 I spent 100% of this visit face to face with the patient with greater than 50% of this was spent time counseling the patient and coordination of care.
== END 2019-07-22 16:21 | disposition home or self-care (01) ==
LOC: SC 16:20
PROVIDERS: ATTEND Nurse Practitioner Family
DX: G47.33 Obstructive sleep apnea (adult) (pediatric) (principal); E66.01 Morbid (severe) obesity due to excess calories; Z68.41 Body mass index [BMI] 40.0-44.9, adult
CPT/HCPCS: 99212; 99214

== ENCOUNTER 2020-07-13 16:09 | Outpatient (CLI) | payer OTHER ==
--- NOTE | 2020-07-13 16:41 | SLEEP CARE CONSULTATION ---
Information from patient questionnaire entered by Sally Doe. I have reviewed and concur with the information entered by Sally Doe. This document represents the service I personally performed and the decisions made by , Rhina Avelar ARNP. History of Present Illness Service Date and Time: 07/13/2020 1609 Previous diagnosis: Mild, Obstructive Sleep Apnea-Hypopnea Syndrome AHI: 7.1 Reason for follow up: annual (Last seen 06/2019) Equipment type: CPAP Equipment obtained from: Other ([employer]; getting supplies - better than [employer]) Mask style: Full face Backup mask available: Yes (old mask) Last cushion change: 1 month Year and Where: [address] [facility] Type of Sleep Study: Home sleep study HPI additional information: TEAGAN PEREZ was diagnosed to have mild, AHI 7.1, obstructive sleep apnea- hypopnea syndrome and returned today for CPAP therapy annual follow-up. CPAP Compliance Data - Data Reviewed with Patient Average duration of nightly device use: 6 h 26 min Compliance rate %: 95 Current pressure setting (cmH2O): 7-11 Humidity settin Heated hose settin Average residual AHI: 0.7 Average large leak: 5 min 4 sec Subjective Missed days of use due to: reports: other (when anxieties are high she may remove mask) Patient concerns: denies: aerophagia, mask discomfort, air blowing in eyes, mask leak noise, condensation in mask/hose, nasal congestion, dry mouth, nose, throat, epistaxis, other Observed to snore while using device: No (only when on her back) Current pressure setting perceived as: comfortable On therapy, patient: reports: sleeping better, awakening more refreshed, being more awake and alert during the day, more rested overall. denies: drowsiness while driving Initial [place] Sleepiness Scale score: 18 (in 2018) Current [place] Sleepiness Scale score: 4 Allergies and Home Medications Home medication list reviewed: Yes (no changes) Review of Systems Review of systems same as previous: Yes (no changes) Physical Exam Heart Rate: 79 O2 Saturation: 99 Height: 5 ft 9 in Weight: 297 lb Body Mass Index: 43.8 BMI Classification: Morbidly Obese Impression and Plan 1. Obstructive Sleep Apnea-Hypopnea Syndrome, mild, with good treatment compliance and good apnea control. On CPAP therapy, the patient has better sleep quality and is more rested overall. Patient is going to try to lose weight. Currently patients BMI is 43.82. She is starting to walk with a group tomorrow and is looking at ways to improve her diet. Obesity increases the risk of apnea, CPAP pressure requirements and overall health risks especially cardiovascular and diabetes. Thus patient is advised to continue to try to lose weight. Weight loss can be done with reducing portion size, reducing refined foods and balancing content with vegetables, fruit and whole grain foods. The BMI chart was reviewed. The patient's CPAP pressure range should accommodate some weight loss. Symptoms to report for additional pressure adjustment discussed. Patient's apnea severity and rationale for treatment to reduce apnea, improve sleep quality and reduce cardiovascular and cerebrovascular events was reviewed. I also reviewed the benefit of consistent device use of CPAP for depression and anxiety. * Continue autoCPAP pressure at 7-11 cmH2O * Notify me if snoring with mask or feeling that the pressure is too much or too little * Continue to try to lose weight * Call this office if any problems using CPAP * Return for follow up in 1 year, or sooner if concerns arise Counseling Topics: Spare mask, Weight loss health impact Visit Type: In Office Time Spent with Patient (minutes): 22 Provider Statement: I spent 100% of the Face to Face Visit with the patient with greater than 50% spent counseling the patient and coordination of care.
== END 2020-07-13 16:10 | disposition home or self-care (01) ==
LOC: SC 16:09
PROVIDERS: ATTEND Nurse Practitioner Family
DX: G47.33 Obstructive sleep apnea (adult) (pediatric) (principal); E66.01 Morbid (severe) obesity due to excess calories; Z68.41 Body mass index [BMI] 40.0-44.9, adult
CPT/HCPCS: 99212; 99213

== ENCOUNTER 2021-02-16 16:18 | Outpatient (CLI) | payer OTHER ==
--- NOTE | 2021-02-16 22:02 | XRAY Report ---
PROCEDURE: Hand 3 View RT INDICATIONS: R HAND PX TECHNIQUE: 3 views of the hand(s) acquired. COMPARISON: None FINDINGS: Bones: No fractures or dislocations. No suspicious bony lesions. Soft tissues: No suspicious soft tissue calcifications. IMPRESSION: No right hand fracture or dislocation. No suspicious bony lesion. No gross soft tissue abnormality. Reviewed by: Jacob Crum MD on 02/16/2021 10:01 PM PDT Approved by: Jacob Crum MD on 02/16/2021 10:01 PM PDT Station ID: [id number]
== END 2021-02-16 16:20 ==
LOC: DI.N 16:18
PROVIDERS: ATTEND Family Medicine
DX: M79.641 Pain in right hand (principal)

== ENCOUNTER 2021-04-19 14:45 | Outpatient (CLI) | payer OTHER ==
--- NOTE | 2021-04-19 17:33 | XRAY Report ---
PROCEDURE: Wrist 3 View RT INDICATIONS: STRAIN OF R WRIST TECHNIQUE: 3 views of the wrist were acquired. COMPARISON: Right hand radiographs 02/16/2021 FINDINGS: Bones: No acute fractures or dislocations. No suspicious bony lesions. Soft tissues: No suspicious soft tissue calcifications. IMPRESSION: No acute osseous abnormality. If there is clinical concern or persistent symptoms, additional imaging such as repeat radiographs or advanced imaging (e.g. CT, MRI) may be helpful for further evaluation. Reviewed by: Js Hoyos MD on 04/19/2021 5:31 PM PST Approved by: Js Hoyos MD on 04/19/2021 5:31 PM PST Station ID: [id number]
== END 2021-04-19 23:59 | disposition home or self-care (01) ==
LOC: DI.N 14:45
PROVIDERS: ATTEND Physician Assistant
DX: S66.811A Strain of other specified muscles, fascia and tendons at wrist and hand level, right hand, initial encounter (principal)

== ENCOUNTER 2022-07-04 07:04 | Outpatient (CLI) | payer OTHER ==
[2022-07-04 12:18] LABS: BASOPHILS # (AUTO) 0.1 10^3/uL (0.0-0.1); BASOPHILS % (AUTO) 0.9 %; EOSINOPHILS # (AUTO) 0.1 10^3/uL (0.0-0.7); EOSINOPHILS % (AUTO) 0.9 %; HCT - HEMATOCRIT 44.5 % (37.0-47.0); HGB - HEMOGLOBIN 13.8 g/dL (12.0-16.0); LYMPHOCYTES # (AUTO) 2.1 10^3/uL (1.5-3.5); LYMPHOCYTES % (AUTO) 25.3 %; MEAN CORPUSCULAR HEMOGLOBIN 28.6 pg (27.0-31.0); MEAN CORPUSCULAR VOLUME 92.3 fL (81.0-99.0); MEAN PLATELET VOLUME 11.2 fL (7.9-10.8); MONOCYTES # (AUTO) 0.5 10^3/uL (0.0-1.0); MONOCYTES % (AUTO) 6.6 %; NEUTROPHILS # (AUTO) 5.5 10^3/uL (1.5-6.6); NEUTROPHILS % (AUTO) 66.1 %; PLT - PLATELET COUNT 273 10^3/uL (130-450); RED BLOOD COUNT 4.82 10^6/uL (4.20-5.40); RED CELL DISTRIBUTION WIDTH 13.8 % (12.0-15.0); WHITE BLOOD COUNT 8.2 x10^3/uL (4.8-10.8)
[2022-07-04 13:20] LABS: THYROID STIMULATING HORMONE 3.9 uIU/mL (0.34-5.60)
[2022-07-04 13:28] LABS: ESTIMATED AVERAGE GLUCOSE 111 mg/dL (70-100); HEMOGLOBIN A1c% 5.5 % (4.27-6.07)
[2022-07-04 17:52] LABS: ALBUMIN 3.5 g/dL (3.2-5.5); ALKALINE PHOSPHATASE 49 IU/L (42-121); ALT ALANINE AMINOTRANSFERASE 11 IU/L (10-60); AST ASPARTATE AMINOTRANSFERASE 18 IU/L (10-42); BILIRUBIN,TOTAL 0.4 mg/dL (0.2-1.0); BUN - BLOOD UREA NITROGEN 8 mg/dL (6-20); CARBON DIOXIDE - CO2 26 mmol/L (21-32); CHLORIDE 105 mmol/L (101-111); CHOL/HDL RATIO 4.5 (<4.4); CHOLESTEROL 216 mg/dL; CREATININE 0.8 mg/dL (0.4-1.0); GFR - MDRD 80 (>89); GLUCOSE 95 mg/dL (70-100); HDL CHOLESTEROL 48 mg/dL; LDL CHOLESTEROL,CALCULATED 145 mg/dL; POTASSIUM 4.3 mmol/L (3.5-5.0); SODIUM 142 mmol/L (135-145); TRIGLYCERIDES 117 mg/dL; VLDL CHOLESTEROL 23 mg/dL
== END 2022-07-04 07:05 | disposition home or self-care (01) ==
LOC: LAB.N 07:04
PROVIDERS: ATTEND Nurse Practitioner Family
DX: Z00.00 Encounter for general adult medical examination without abnormal findings (principal); E66.01 Morbid (severe) obesity due to excess calories
CPT/HCPCS: 36415; 80053; 80061; 83036; 83721; 84443; 85025

== ENCOUNTER 2022-12-21 08:01 | Outpatient (CLI) | payer OTHER ==
--- NOTE | 2022-12-21 10:58 | Mammography Report ---
BILATERAL DIGITAL SCREENING MAMMOGRAM 3D/2D: 12/21/2022 CLINICAL: Baseline exam. Routine screening. No prior exams were available for comparison. Both breasts are almost entirely fatty (category a/<25% glandular tissue). No significant masses, calcifications, or other findings are seen in either breast. IMPRESSION: NEGATIVE There is no mammographic evidence of malignancy. A 1 year screening mammogram is recommended. Based on the Tyrer Cuzick model (a risk assessment model) the patients lifetime risk is 5.7% and her 10 year risk is 0.7%. According to the ACR, ACS, and NCCN guidelines, an annual breast MRI exam dora g with mammogram is recommended if the patients lifetime risk is 20% or greater. This exam was interpreted at Station ID: [id number]. NOTE: For mammograms, a report in lay terms will be sent to the patient. Approximately 15% of breast malignancies will not be visualized mammographically. In the management of a palpable breast mass, a negative mammogram must not discourage biopsy of a clinically suspicious lesion. Electronically Signed By: Js vyas/jordon:12/21/2022 09:52:48 letter sent: No_Letter ACR BI-RADS Category 1: Negative 3341F PARENCHYMAL PATTERN: (F) - The breast(s) demonstrate(s) diffuse fatty replacement. BI-RADS CATEGORY: (1) - 1 Mammogram [id number] 1 year screening LATERALITY: (B)
== END 2022-12-21 08:02 | disposition home or self-care (01) ==
LOC: DI.N 08:01
DX: Z12.31 Encounter for screening mammogram for malignant neoplasm of breast (principal)

== ENCOUNTER 2023-12-04 07:08 | Outpatient (CLI) | payer OTHER ==
[2023-12-04 12:35] LABS: BASOPHILS # (AUTO) 0.1 10^3/uL (0.0-0.1); BASOPHILS % (AUTO) 1.3 %; EOSINOPHILS # (AUTO) 0.4 10^3/uL (0.0-0.7); EOSINOPHILS % (AUTO) 5.4 %; HCT - HEMATOCRIT 45.4 % (37.0-47.0); HGB - HEMOGLOBIN 14.4 g/dL (12.0-16.0); LYMPHOCYTES # (AUTO) 2.3 10^3/uL (1.5-3.5); LYMPHOCYTES % (AUTO) 31.8 %; MEAN CORPUSCULAR HGB CONC 31.7 g/dL (32.0-36.0); MEAN CORPUSCULAR VOLUME 91.5 fL (81.0-99.0); MEAN PLATELET VOLUME 10.9 fL (7.9-10.8); MONOCYTES # (AUTO) 0.5 10^3/uL (0.0-1.0); MONOCYTES % (AUTO) 6.8 %; NEUTROPHILS # (AUTO) 3.8 10^3/uL (1.5-6.6); NEUTROPHILS % (AUTO) 54.1 %; PLT - PLATELET COUNT 301 10^3/uL (130-450); RED BLOOD COUNT 4.96 10^6/uL (4.20-5.40); WHITE BLOOD COUNT 7.1 x10^3/uL (4.8-10.8)
[2023-12-04 13:09] LABS: ALBUMIN/GLOBULIN RATIO 1.1 (1.0-2.2); ALKALINE PHOSPHATASE 67 IU/L (42-121); ALT ALANINE AMINOTRANSFERASE 11 IU/L (10-60); AST ASPARTATE AMINOTRANSFERASE 13 IU/L (10-42); BILIRUBIN,TOTAL 0.4 mg/dL (0.2-1.0); BUN - BLOOD UREA NITROGEN 7 mg/dL (6-20); CALCIUM 9.2 mg/dL (8.5-10.3); CARBON DIOXIDE - CO2 26 mmol/L (21-32); CHLORIDE 102 mmol/L (101-111); CHOL/HDL RATIO 4.1 (<4.4); CHOLESTEROL 227 mg/dL; CREATININE 0.9 mg/dL (0.6-1.3); GFR - MDRD 69 (>89); GLUCOSE 90 mg/dL (74-104); HDL CHOLESTEROL 56 mg/dL; LDL CHOLESTEROL,CALCULATED 139 mg/dL; LDL/HDL RATIO 2.5 (<4.4); POTASSIUM 3.9 mmol/L (3.5-4.5); SODIUM 135 mmol/L (135-145); TOTAL PROTEIN 7.7 g/dL (6.4-8.9); TRIGLYCERIDES 160 mg/dL; VLDL CHOLESTEROL 32 mg/dL
[2023-12-04 19:54] LABS: ESTIMATED AVERAGE GLUCOSE 100 mg/dL (70-100); HEMOGLOBIN A1c% 5.1 % (4.27-6.07)
== END 2023-12-04 07:09 | disposition home or self-care (01) ==
LOC: LAB.N 07:08
PROVIDERS: ATTEND Nurse Practitioner Family
DX: I10 Essential (primary) hypertension (principal); E66.01 Morbid (severe) obesity due to excess calories
CPT/HCPCS: 36415; 80053; 80061; 83036; 83721; 85025